=== PATIENT | female | born 1995 | race Caucasian/White ===

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

== ENCOUNTER 2017-07-10 18:42 | Emergency (ER) | payer BC ==
[2017-07-10 19:13] LABS: PLATELET COUNT 273 10^3/uL (150-400)
[2017-07-10 19:20] VITALS: BP 105/50
--- NOTE | 2017-07-10 19:23 | EDPHY ---
H & P Stated Complaint: Syncope - Personal History LMP (Females 10-55): 8-14 Days Ago Current Tetanus/Diphtheria Vaccine: Yes Current Tetanus Diphtheria and Acellular Pertussis (TDAP): Yes - Medical/Surgical History Hx Asthma: No Hx Chronic Respiratory Disease: No Hx Diabetes: No Hx Cardiac Disease: No Hx Renal Disease: No Hx Cirrhosis: No Hx Alcoholism: No Hx HIV/AIDS: No Hx Splenectomy or Spleen Trauma: No Other PMH: Panic attacks, snycopal episodes. - Social History Smoking Status: Current some day smoker Time Seen by Provider: 07/10/17 18:49 HPI/ROS: Chief complaint: Dizzy, passed out History of present illness: This is a 21-year-old female who presents to the emergency department for evaluation after becoming dizzy and passing out. Patient states today she started to become more and more dizzy, describing lightheadedness. She had a near syncopal episode while walking to her house. Upon getting to her house she had a full syncopal episode. This was witnessed. No seizure activity noted. No trauma noted. She states she feels very weak. She states she has had ongoing problems with this issue for many years. She has had extensive evaluations without definitive diagnosis given. She denies other associated signs or symptoms at this time. Review of systems: A 10 point review of systems was obtained and other than described above was negative (Toby Kim) - Physical Exam Exam: General Appearance: Alert, nontoxic. Eyes: Pupils equal and round no pallor or injection. ENT, Mouth: Mucous membranes moist. Respiratory: There are no retractions, lungs are clear to auscultation. Cardiovascular: Regular rate and rhythm. Gastrointestinal: Abdomen is soft and non tender, no masses, bowel sounds normal. Neurological: Alert and oriented x4. Cranial nerves 2-12 grossly intact. Strength and sensation intact and symmetrical. Skin: Warm and dry, no rashes. Musculoskeletal: Neck is supple non tender. Extremities are symmetrical, full range of motion. Psychiatric: Patient is oriented X 3, there is no agitation. (Toby Kim) Constitutional: Initial Vital Signs Temperature (C) 37.0 C 07/10/17 18:48 Heart Rate 65 07/10/17 18:48 Respiratory Rate 18 07/10/17 18:48 Blood Pressure 112/71 07/10/17 18:48 O2 Sat (%) 100 07/10/17 18:48 O2 Delivery Mode Room Air Allergies/Adverse Reactions: bee pollen Allergy (Intermediate, Verified 06/02/16 16:13) Edema of Extremities Home Medications: Medication Instructions Recorded Control 07/10/17 Medical Decision Making ED Course/Re-evaluation: The patient was evaluated and managed by the physician's creative assistant. My cosignature indicates that I reviewed the chart and I agree with the findings and plan of care as documented. I am the secondary supervising physician. ( Manuela Caicedo) Patient is discussed with my secondary supervising physician Dr. Manuela Caicedo. Patient presents to the emergency department for evaluation of lightheadedness and syncope. She is nontoxic. Vital signs are stable. Evaluation is largely unremarkable. She is IV hydrated and states she feels much better. This is an ongoing issue that she has had for years. I do believe she is appropriate for discharge home. Home care is discussed. She is asked to follow up with a primary care doctor and cardiology for recheck. Referral information is provided. Return precautions are given. (Toby Kim) Differential Diagnosis: Included but not limited to syncope secondary hypovolemic state, electrolyte disturbances, cardiac disturbances, seizure activity (Toby Kim) - Data Points Laboratory Results: Laboratory Results 07/10/17 18:44 07/10/17 18:44 07/10/17 07/10/17 07/10/17 18:44 18:44 18:44 WBC RBC Hgb Hct MCV MCH MCHC RDW Plt Count MPV Neut % (Auto) Lymph % (Auto) [place] % (Auto) Eos % (Auto) Baso % (Auto) Nucleat RBC Rel Count Absolute Neuts (auto) Absolute Lymphs (auto) Absolute Monos (auto) Absolute Eos (auto) Absolute Basos (auto) Absolute Nucleated RBC Immature Gran % Immature Gran # D-Dimer 0.45 ug/mLFEU ug/mLFEU (0.00-0.50) Sodium 137 mEq/L mEq/L (135-145) Potassium 3.9 mEq/L mEq/L (3.5-5.2) Chloride 102 mEq/L mEq/L (97-110) Carbon Dioxide 23 mEq/l mEq/l (22-31) Anion Gap 12 mEq/L mEq/L (8-16) BUN 13 mg/dL mg/dL (7-23) Creatinine 0.8 mg/dL mg/dL (0.6-1.0) Estimated GFR > 60 Glucose 101 mg/dL H mg/dL (70-100) Calcium 9.1 mg/dL mg/dL (8.5-10.4) Troponin I < 0.012 ng/mL ng/mL (0.000-0.034) Beta HCG, Qual NEGATIVE 07/10/17 18:44 WBC 7.68 10^3/uL 10^3/uL (3.80-9.50) RBC 4.23 10^6/uL 10^6/uL (4.18-5.33) Hgb 11.4 g/dL L g/dL (12.6-16.3) Hct 34.4 % L % (38.0-47.0) MCV 81.3 fL L fL (81.5-99.8) MCH 27.0 pg L pg (27.9-34.1) MCHC 33.1 g/dL g/dL (32.4-36.7) RDW 13.3 % % (11.5-15.2) Plt Count 273 10^3/uL 10^3/uL (150-400) MPV 9.8 fL fL (8.7-11.7) Neut % (Auto) 60.4 % % (39.3-74.2) Lymph % (Auto) 30.7 % % (15.0-45.0) [place] % (Auto) 7.6 % % (4.5-13.0) Eos % (Auto) 0.5 % L % (0.6-7.6) Baso % (Auto) 0.5 % % (0.3-1.7) Nucleat RBC Rel Count 0.0 % % (0.0-0.2) Absolute Neuts (auto) 4.64 10^3/uL 10^3/uL (1.70-6.50) Absolute Lymphs (auto) 2.36 10^3/uL 10^3/uL (1.00-3.00) Absolute Monos (auto) 0.58 10^3/uL 10^3/uL (0.30-0.80) Absolute Eos (auto) 0.04 10^3/uL 10^3/uL (0.03-0.40) Absolute Basos (auto) 0.04 10^3/uL 10^3/uL (0.02-0.10) Absolute Nucleated RBC 0.00 10^3/uL 10^3/uL (0-0.01) Immature Gran % 0.3 % % (0.0-1.1) Immature Gran # 0.02 10^3/uL 10^3/uL (0.00-0.10) D-Dimer Sodium Potassium Chloride Carbon Dioxide Anion Gap BUN Creatinine Estimated GFR Glucose Calcium Troponin I Beta HCG, Qual Medications Given: Discontinued Medications Sodium Chloride (Ns) 1,000 mls @ 6,000 mls/hr IV ONCE ONE Stop: 07/10/17 20:18 Last Admin: 07/10/17 20:09 Dose: 1,000 mls Departure - Departure Disposition: Home, Routine, Self-Care Clinical Impression: Dizziness Syncope Qualifiers: Syncope type: unspecified Qualified Code(s): R55 - Syncope and collapse Condition: Good Instructions: Syncope (ED), Dizziness (ED) Additional Instructions: Follow-up with primary care and Cardiology for further evaluation and care Drink plenty of fluids to stay hydrated. Get plenty of rest. If symptoms worsen or new symptoms develop return to the emergency room for recheck. Referrals: Patient,NotPresent [Unknown] - As per Instructions Karli Fabian MD [Medical Doctor] - As per Instructions Camacho Christensen MD [Medical Doctor] - As per Instructions
--- NOTE | 2017-07-10 19:26 | CPEKG ---
Heart Rate: 59 RR Interval: 1017 P-R Interval: 144 QRSD Interval: 94 QT Interval: 428 QTC Interval: 424 P [place]: 68 QRS [place]: 67 T Wave [place]: 33 EKG Severity - BORDERLINE ECG - EKG Impression: SINUS RHYTHM EKG Impression: PROBABLE LEFT ATRIAL ABNORMALITY Electronically Signed By: Manuela Caicedo 10-Jul-2017 23:05:46
[2017-07-10] MEDS ORDERED: NS 1,000 ML IV ONE (20:09)
== END 2017-07-10 21:17 | disposition home or self-care (01) ==
LOC: EDUNIT#
DX: R42 Dizziness and giddiness (principal); R55 Syncope and collapse; F17.200 Nicotine dependence, unspecified, uncomplicated